=== PATIENT | male | born 1995 | race Caucasian/White ===

== ENCOUNTER 2022-09-09 14:19 | Emergency (ER) | payer SELFPAY ==
[~2022-09-09] VITALS: Ht 167.6 cm; Wt 83.0 kg
[2022-09-09] MEDS ORDERED: IBUPROFEN 600MG TABLET PO ONE (18:30)
[2022-09-09] MEDS ORDERED: IBUP-2029 MT (19:50)
[2022-09-09 20:01] VITALS: BP 127/75
== END 2022-09-09 20:00 | disposition home or self-care (01) ==
LOC: ER 14:19
DX: S00.33XA Contusion of nose, initial encounter (principal); S80.211A Abrasion, right knee, initial encounter; Y08.89XA Assault by other specified means, initial encounter; Y93.9 Activity, unspecified
CPT/HCPCS: 99284